=== PATIENT | female | born 1985 | race Caucasian/White ===

== ENCOUNTER 2017-09-23 13:45 | Emergency (ER) | payer OTHER ==
[~2017-09-23] VITALS: Ht 167.6 cm; Wt 61.8 kg
[2017-09-23 13:50] VITALS: Ht 167.6 cm; Wt 61.8 kg
[2017-09-23] MEDS ORDERED: DIPHENHYDRAMINE 25 MG CAP PO ONE (16:30)
[2017-09-23 17:13] LABS: ADD UMIC NO; UR ASCORBIC ACID 40 mg/dL (NEGATIVE); UR BILIRUBIN (Dip) NEGATIVE (NEGATIVE); UR BLOOD (Dip) NEGATIVE (NEGATIVE); UR CLARITY CLEAR (CLEAR); UR COLOR YELLOW (YELLOW); UR GLUCOSE (Dip) NEGATIVE (NEGATIVE); UR KETONES (Dip) NEGATIVE (NEGATIVE); UR LEUKOCYTE ESTERASE (Dip) NEGATIVE Leu/ul (NEGATIVE); UR NITRITE (Dip) NEGATIVE (NEGATIVE); UR SPECIFIC GRAVITY (Dip) 1.021 (1.003-1.030); UR TOTAL PROTEIN (Dip) NEGATIVE (NEGATIVE); UR UROBILINOGEN (Dip) NEGATIVE (NEGATIVE)
[2017-09-23 17:15] LABS: BASOPHIL # 0.1 10^3/ul (0.0-0.1); BASOPHILS % 0.5 % (0.0-2.0); EOSINOPHILS # 0.1 10^3/ul (0.0-0.5); EOSINOPHILS % 0.4 % (0.0-7.0); HEMATOCRIT 36.2 % (37.0-47.0); HEMOGLOBIN 11.6 g/dl (12.0-16.0); LYMPHOCYTES # 2.1 10^3/ul (0.8-2.9); LYMPHOCYTES % 15.7 % (15.0-51.0); MEAN CORPUSCULAR HEMOGLOBIN 25.6 pg (29.0-33.0); MEAN CORPUSCULAR VOLUME 79.7 fl (82.0-101.0); MEAN PLATELET VOLUME 9.2 fl (7.4-10.4); MONOCYTE # 1.2 10^3/ul (0.3-0.9); MONOCYTES % 9.3 % (0.0-11.0); NEUTROPHIL # 9.7 10^3/ul (1.6-7.5); NEUTROPHILS % 73.7 % (39.0-77.0); PLATELET COUNT 387 10^3/UL (140-415); RED BLOOD COUNT 4.54 10^6/ul (4.20-5.40); RED CELL DISTRIBUTION WIDTH 19.6 % (11.5-14.5); WHITE BLOOD COUNT 13.1 10^3/ul (4.8-10.8)
[2017-09-23 17:36] LABS: ALBUMIN 4.4 g/dl (3.3-4.9); ALBUMIN/GLOBULIN RATIO 1.37; BILIRUBIN,INDIRECT 0.2 mg/dl (0-1.1); BILIRUBIN,TOTAL 0.2 mg/dl (0.2-1.3); CALCIUM 9.1 mg/dl (8.4-10.2); CREATININE 0.6 mg/dl (0.44-1.00); POTASSIUM 4.2 mmol/L (3.5-5.1); TOTAL PROTEIN 7.6 g/dl (6.1-8.1)
--- NOTE | 2017-09-23 17:37 | RADRPT ---
PROCEDURE: US OB. CLINICAL INDICATION: Pelvic pain TECHNIQUE: Transabdominal and transvaginal pelvic ultrasound are performed. COMPARISON: None. FINDINGS: The uterus is normal in echogenicity and anteverted in orientation. No focal fibroids are identifi ed. Within the endometrial canal, a dichorionic diamniotic twin gestational sac is identified. Twin A: pole and yolk sac are identified. The crown-rump length measures 1.1 cm correspondin g to an estimated age of 7 weeks 2 days. Positive cardiac activity identified a rate of 146 be ats per minute. No subchorionic hemorrhage is seen Twin B: pole and yolk sac are identified. The crown-rump length measures 1.04 cm correspondin g to an estimated age of 7 weeks 1 day. Positive cardiac activity detected a rate of 144 beats per minute. No subchorionic hemorrhage identified. Both ovaries are identified, and normal in size, shape, and appearance. Simple bilateral ovarian fo llicles/cysts are seen. There are no solid or complex adnexal masses.. Normal Doppler flow is noted of both ovaries. The right ovary measures 3.5 x 1.6 x 2.3 cm, and the left ovary measures 3.8 x 2.7 x 2.9 cm There is no free fluid in the pelvis IMPRESSION: 1. Dichorionic diamniotic live twin intrauterine pregnancies. 2. Twin A: Estimated age of 7 weeks 2 days. Positive cardiac activity. 3. Twin B : Estimated age of 7 weeks 0 days. Positive cardiac activity 4. No subchorionic hemorrhage. 5. Normal ovaries bilaterally. No complex adnexal masses. 6. Normal Doppler flow to both ovaries. 7. No free fluid in the pelvis RPTAT: HH .Cesar Pearl MD, MD Date Time Electronically viewed and signed by .Cesar Pearl MD, MD on 09/23/2017 17:37 .W/
[2017-09-23] MEDS ORDERED: BEN25 PO (18:49)
--- NOTE | 2017-09-23 18:57 | ERD ---
ER Documentation Chief Complaint Chief Complaint GEN BODY RASH,ITCHING,2 WEEKS HPI This is a 31-year-old female presents to the ER with generalized body rash that is itchy. This started yesterday. Patient states she is currently 2 weeks . She denies any vaginal bleeding or pelvic pain. Patient has not had any real care. A2. She denies any difficulty in breathing, facial swelling. Not had any exposure to new medications or substances. ROS 12 point review of systems was done, all negative except per HPI. Medications Home Meds Active Scripts Diphenhydramine Hcl* (Benadryl*) 25 Mg Cap, 25 MG PO Q6, #30 CAP Prov:GABINO SHELDON 09/23/17 PMhx/Soc Medical and Surgical Hx: pt denies Medical Hx, pt denies Surgical Hx Hx Alcohol Use: No Hx Substance Use: No Hx Tobacco Use: No Smoking Status: Never smoker Physical Exam Vitals Vital Signs Date Time Temp Pulse Resp B/P Pulse Ox O2 Delivery O2 Flow Rate FiO2 09/23/17 13:50 99.3 76 18 121/74 98 Physical Exam GENERAL: The patient is well developed and appropriate for usual state of health , in no apparent distress. HEENT: Atraumatic. No lip, tongue, eyes swelling. CHEST: Clear to auscultation bilaterally. There are no rales, wheezes or rhonchi. HEART: Regular rate and rhythm. No murmurs, clicks, rubs or gallops. ABDOMEN: Soft, nontender and nondistended. Good bowel sounds. No rebound or guarding. No gross peritonitis. No gross organomegaly or masses. No Sherman sign or McBurney point tenderness. BACK: No midline or flank tenderness. NEURO: Alert and oriented. SKIN: Macular papular rash all over the body Result Diagram: 09/23/17 1650 09/23/17 1650 Results 24 hrs Laboratory Tests Test 09/23/17 16:40 09/23/17 16:50 Urine Color YELLOW Urine Clarity CLEAR Urine pH 6.0 Urine Specific [place] 1.021 Urine Ketones NEGATIVEmg/dL Urine Nitrite NEGATIVEmg/dL Urine Bilirubin NEGATIVEmg/dL Urine Urobilinogen NEGATIVEmg/dL Urine Leukocyte Esterase NEGATIVELeu/ul Urine Hemoglobin NEGATIVEmg/dL Urine Glucose NEGATIVEmg/dL Urine Total Protein NEGATIVEmg/dl White Blood Count 13.110^3/ul Red Blood Count 4.5410^6/ul Hemoglobin 11.6g/dl Hematocrit 36.2% Mean Corpuscular Volume 79.7fl Mean Corpuscular Hemoglobin 25.6pg Mean Corpuscular Hemoglobin Concent 32.0g/dl Red Cell Distribution Width 19.6% Platelet Count 53878^3/UL Mean Platelet Volume 9.2fl Neutrophils % 73.7% Lymphocytes % 15.7% Monocytes % 9.3% Eosinophils % 0.4% Basophils % 0.5% Nucleated Red Blood Cells % 0.0/100WBC Neutrophils # 9.710^3/ul Lymphocytes # 2.110^3/ul Monocytes # 1.210^3/ul Eosinophils # 0.110^3/ul Basophils # 0.110^3/ul Nucleated Red Blood Cells # 0.010^3/ul Sodium Level 138mmol/L Potassium Level 4.2mmol/L Chloride Level 103mmol/L Carbon Dioxide Level 24mmol/L Anion Gap 15 Blood Urea Nitrogen 10mg/dl Creatinine 0.60mg/dl Glucose Level 94mg/dl Calcium Level 9.1mg/dl Total Bilirubin 0.2mg/dl Direct Bilirubin 0.00mg/dl Indirect Bilirubin 0.2mg/dl Aspartate Amino Transf (AST/SGOT) 20IU/L Alanine Aminotransferase (ALT/SGPT) 30IU/L Alkaline Phosphatase 49IU/L Total Protein 7.6g/dl Albumin 4.4g/dl Globulin 3.20g/dl Albumin/Globulin Ratio 1.37 Beta HCG, Quantitative 825364.0mIU/ml Current Medications Medications (Trade) Dose Ordered Sig/Juana Route PRN Reason Start Time Stop Time Status Last Admin Dose Admin Diphenhydramine HCl (Benadryl) 25 mg ONCE ONCE PO 09/23/17 16:30 09/23/17 16:33 DC 09/23/17 16:46 Procedures/MDM This is a 31-year-old female presents to the ER with a rash all over her body, patient does appear to have hives, she is given Benadryl in the ER and her itching was significantly better. She is on blood work was drawn as patient did not have any previous care and history of 2 previous abortions. Patient is having twins, they appear normal on ultrasound and her quantitative hCG is appropriate. Be sent home with Benadryl. Patient does not have any facial swelling, or difficulty in breathing. Suspicion for anaphylactic reaction is low. Patient is afebrile and well appearing i doubt infectious etiology. She is to follow-up with her primary care doctor within 1-2 days or return to ER sooner if symptoms worsen. My medical decision making shared with the patient she understands and agrees with plan per Departure Diagnosis: Primary Impression: Hives Condition: Stable Patient Instructions: Hives Additional Instructions: Call your primary care doctor TOMORROW for an appointment during the next 1-2 days.See the doctor sooner or return here if your condition worsens before your appointment time. GABINO SHELDON Sep 23, 2017 18:57
== END 2017-09-23 18:56 | disposition home or self-care (01) ==
LOC: FTE 13:45
DX: O99.89 Other specified diseases and conditions complicating pregnancy, childbirth and the puerperium (principal); L50.9 Urticaria, unspecified; R10.2 Pelvic and perineal pain; Z3A.01 Less than 8 weeks gestation of pregnancy
CPT/HCPCS: 36415; 76801; 80053; 81003; 84702; 85025; 86900; 86901; Z7502; Z7610

== ENCOUNTER 2018-04-15 10:04 | Inpatient (IN) | END 2018-04-18 15:23 | disposition home or self-care (01) | DRG 765 ==